=== PATIENT | female | born 1965 | race Caucasian/White ===

== ENCOUNTER 2016-11-27 19:35 | Emergency (ER) | payer OTHER ==
[2016-11-27 19:55] VITALS: BP 183/100; PULSE 73; RESP 18; TEMP 98.4; O2SAT 98
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
[2016-11-27] MEDS ORDERED: TETANUS/DIPHTHERIA TOXOID ADULT 0.5 ML VIAL IM ONE (21:30)
[2016-11-27] MEDS ORDERED: SILV1CRE20 TOPICAL (21:38)
[2016-11-27] MEDS ORDERED: SILVER SULFADIAZINE 1% CR 50 GM JAR TOPICAL ONE (21:45)
== END 2016-11-27 22:00 | disposition home or self-care (01) ==
LOC: PHEFT 19:35
DX: T25.221A Burn of second degree of right foot, initial encounter (principal); T31.0 Burns involving less than 10% of body surface; X10.2XXA Contact with fats and cooking oils, initial encounter; Y93.G1 Activity, food preparation and clean up
CPT/HCPCS: 16020; 90471; 90714